=== PATIENT | male | born 1935 | race Caucasian/White ===

== ENCOUNTER 2017-01-01 09:41 | Observation (INO) | payer MEDICARE, OTHER ==
--- NOTE | ~2017-01-01 | EGD ---
EGD REPORT [facility] [address] [address] NAME: TAIWO BRANDT : 35 STATUS : ADM IN PAT#: [id number] AGE: 82 ADM/REG DATE : 01/01/17 MR#: [id number] REPORT SERV DATE: 01/03/17 DICTATED BY: DAVID SANTOS DATE: 01/03/17 REPORT STATUS : Draft TRANSCRIBED BY: [facility] DATE: 01/03/17 Endoscopy Center Patient Name: Taiwo Brandt Date of : 1935 Attending MD: DAVID SANTOS MD Procedure Date No Time: 01/03/2017 Procedure: Upper GI endoscopy Indications: Suspected upper gastrointestinal bleeding Referring MD: ABRAM SOTOMAYOR MD Medicines: Monitored Anesthesia Care Complications: No immediate complications. Estimated blood loss: Minimal. Procedure: Pre-Anesthesia Assessment: - ASA Grade Assessment: III - A patient with severe systemic disease. After obtaining informed consent, the endoscope was passed under direct vision. Throughout the procedure, the patient's blood pressure, pulse, and oxygen saturations were monitored continuously. The GIF H190 [id number] was introduced through the mouth, and advanced to the third part of duodenum. The upper GI endoscopy was accomplished without difficulty. The patient tolerated the procedure well. Findings: The examined esophagus was normal. Two non-bleeding linear gastric ulcers with no stigmata of bleeding were found in the gastric antrum. The largest lesion was 4 mm in largest dimension. One non-bleeding cratered duodenal ulcer with pigmented material was found in the third part of the duodenum. The lesion was 10 mm in largest dimension. A medium-sized hiatus hernia was present. The exam was otherwise without abnormality. Impression: - Gastric ulcers with clean base. - One non-bleeding duodenal ulcer. - Hiatus hernia. - The examination was otherwise normal. Recommendation: - Observe patient in CDU until patient is stable. - Check hemoglobin q 12 hours until stable. - OK to discharge once Hbg has been stable for more than 24 hours EGD REPORT [address] [place]. [address] NAME: TAIWO BRANDT : 35 STATUS : ADM IN [facility]#: [id number] AGE: 82 ADM/REG DATE : 01/01/17 MR#: [id number] REPORT SERV DATE: 01/03/17 DICTATED BY: DAVID SANTOS DATE: 01/03/17 REPORT STATUS : Draft TRANSCRIBED BY: [employer] DATE: 01/03/17 Procedure Code(s): --- Professional --- 15709, Esophagogastroduodenoscopy, flexible, transoral; diagnostic, including collection of specimen(s) by brushing or washing, when performed (separate procedure) Diagnosis Code(s): --- Professional --- K25.9, Gastric ulcer, unspecified as acute or chronic, without hemorrhage or perforation K26.9, Duodenal ulcer, unspecified as acute or chronic, without hemorrhage or perforation K44.9, Diaphragmatic hernia without obstruction or gangrene CPT copyright 2013 [employer]. All rights reserved. The codes documented in this report are preliminary and upon insurance administrative assistant review may be revised to meet current compliance requirements. David Santos MD DAVID SANTOS MD 01/03/2017 3:58 PM This report has been signed electronically. Number of Addenda: 0 Note Initiated On: 01/03/2017 3:23 PM Scope Withdrawal Time 0 hours 0 minutes 0 seconds [id number] [place] [id number]
--- NOTE | ~2017-01-01 | EGD ---
EGD REPORT [facility] [address] [address] NAME: TAIWO BRANDT : 35 STATUS : ADM IN PAT#: [id number] AGE: 82 ADM/REG DATE : 01/01/17 MR#: [id number] REPORT SERV DATE: 01/02/17 DICTATED BY: DATE: REPORT STATUS : Draft TRANSCRIBED BY: [employer] DATE: 01/02/17 Endoscopy Center Patient Name: Taiwo Brandt Date of : 1935 Attending MD: ABRAM SOTOMAYOR MD Procedure Date No Time: 01/02/2017 Procedure: Colonoscopy Indications: Heme positive stool, Iron deficiency anemia Referring MD: NELI LEIGH Medicines: See the Anesthesia note for documentation of the administered medications Complications: No immediate complications. Estimated blood loss: Minimal. Procedure: Pre-Anesthesia Assessment: - ASA Grade Assessment: III - A patient with severe systemic disease. After I obtained informed consent, the scope was passed under direct vision. Throughout the procedure, the patient's blood pressure, pulse, and oxygen saturations were monitored continuously. The [facility] [id number] was introduced through the anus and advanced to the terminal ileum. The ileocecal valve, appendiceal orifice, terminal ileum and rectum were photographed. The entire colon was examined. The colonoscopy was performed without difficulty. The patient tolerated the procedure well. The quality of the bowel preparation was good. Findings: The perianal and digital rectal examinations were normal. The terminal ileum appeared normal. A pedunculated polyp was found in the distal descending colon. The polyp was 15 mm in size. The polyp was removed with a hot snare. Resection and retrieval were complete. One hemostatic clip was successfully placed. Bleeding had stopped at the end of the maneuver. Non-bleeding internal hemorrhoids were found during retroflexion and were Grade I (internal hemorrhoids that do not prolapse). No other significant abnormalities were identified in a careful examination of the remainder of the colon. Impression: - The examined portion of the ileum was normal. - One 15 mm polyp in the distal descending colon. Resected and retrieved. Clip was placed. - Non-bleeding internal hemorrhoids. Recommendation: - Patient has a contact number available for EGD REPORT [address] [address] NAME: TAIWO BRANDT : 35 STATUS : ADM IN [facility]#: [id number] AGE: 82 ADM/REG DATE : 01/01/17 MR#: [id number] REPORT SERV DATE: 01/02/17 DICTATED BY: DATE: REPORT STATUS : Draft TRANSCRIBED BY: [employer] DATE: 01/02/17 emergencies. The signs and symptoms of potential delayed complications were discussed with the patient. Return to normal activities tomorrow. Written discharge instructions were provided to the patient. - Clear liquid diet today. - Return patient to hospital [facility] for observation. - Continue present medications. - Await pathology results. - Repeat colonoscopy is not recommended for surveillance. Procedure Code(s): --- Professional --- 77406, Colonoscopy, flexible, proximal to splenic flexure; with removal of tumor(s), polyp(s), or other lesion(s) by snare technique Diagnosis Code(s): --- Professional --- K64.0, First degree hemorrhoids D12.4, Benign neoplasm of descending colon R19.5, Other fecal abnormalities D50.9, Iron deficiency anemia, unspecified CPT copyright 2013 [employer]. All rights reserved. The codes documented in this report are preliminary and upon picking tech review may be revised to meet current compliance requirements. ABRAM SOTOMAYOR MD 01/02/2017 9:10 AM This report has been signed electronically. Number of Addenda: 0 Note Initiated On: 01/02/2017 6:59 AM Scope Withdrawal Time 0 hours 7 minutes 11 seconds [id number] [place] [id number]
--- NOTE | ~2017-01-01 | CN ---
Consultation Report [facility] [address] [place]. [address] NAME: TAIWO WARNER : 35 STATUS : ADM IN PAT#: [id number] AGE: 82 ADM/REG DATE : 01/01/17 MR#: [id number] REPORT SERV DATE: 01/02/17 DICTATED BY: CHAIM LEES DATE: 01/02/17 REPORT STATUS : Draft TRANSCRIBED BY: LEVI DATE: 01/02/17 DATE OF CONSULTATION: 01/01/2017 REASON FOR CONSULT: Medical management. HISTORY OF PRESENT ILLNESS: This patient is an 82-year-old gentleman who was admitted due to positive blood in stool. The patient is under the care of Dr. Jimenes. The patient underwent an EGD and colonoscopy today, which was noted a large duodenal polyp which was biopsied. The patient is at this time resting in his room. Denies pain. He does state he is having slight abdominal tenderness. Denies nausea and vomiting. He does deny shortness of breath. No chest pain at this time. PAST MEDICAL HISTORY: 1. Parkinson disease. 2. Hypertension. 3. Gastroesophageal reflux disease. 4. Iron deficiency anemia. 5. Heme-positive stool. 6. Hard of hearing, wears hearing aids. PAST SURGICAL HISTORY: No surgeries. SOCIAL HISTORY: The patient lives alone. Was a former smoker. Denies alcohol use. He does state his one year ago. ALLERGIES: NO KNOWN DRUG ALLERGIES. HOME MEDICATIONS: 1. Lisinopril 10 mg one p.o. daily. 2. Prilosec 20 mg p.o. daily. 3. Visken 2.5 mg daily. 4. Tranxene 7.5 mg one p.o. daily p.r.n. for pain. 5. Sinemet 25/100 mg tab one p.o. three times daily. PHYSICAL EXAMINATION: VITAL SIGNS: O2 sats 95% on room air. Temp is 97.9, pulse is 78, respirations are 20, and blood pressure is 138/78. GENERAL: This patient is elderly, in no apparent distress. Cooperative. HEENT: No JVD. No nodes. LUNGS: Clear bilateral. No wheezes, rales, or rhonchi. CARDIOVASCULAR: Regular rate and rhythm. No murmurs, rubs, or gallops. ABDOMEN: Soft, slightly tender to touch in the upper abdomen. Bowel sounds are active. EXTREMITIES: No edema. No cyanosis. NEURO: The patient is alert and oriented to person, place, and time. Consultation Report [facility] [address] [address] NAME: TAIWO WARNER : 35 STATUS : ADM IN PAT#: [id number] AGE: 82 ADM/REG DATE : 01/01/17 MR#: [id number] REPORT SERV DATE: 01/02/17 DICTATED BY: CHAIM LEES DATE: 01/02/17 REPORT STATUS : Draft TRANSCRIBED BY: LEVI DATE: 01/02/17 LABORATORY DATA: WBC is 9.6, hemoglobin 10.7, hematocrit 36.2, platelet count 237. Sodium 142, potassium is 4.0, chloride is 107, CO2 is 24, BUN is 10, creatinine is 0.85. Glucose is 104, calcium is 9.2, magnesium is 2.6, phosphorus is 3.0. Total protein is 8.0. Total bilirubin 0.5. Alkaline phosphatase 112, ALT is 17, AST is 13. PROCEDURES: 1. Colonoscopy. Impression: Exam portion of the ileum was normal. A 15 mm polyp in the distal descending colon. Resected and retrieved. Nonbleeding internal hemorrhoids. 2. EGD. Impression: Single duodenal polyp, incomplete resection. Resected tissue retrieved. Injected. Treated with therapy. Clips were placed. Normal stomach and normal esophagus. ASSESSMENT AND PLAN: 1. Iron deficiency anemia, heme-positive stool, duodenal bleed. The patient has been admitted overnight. H and H will be monitored. 2. Transfuse if needed. 3. Hypertension. The patient has known history of hypertension. We will restart home medications. Add hydralazine p.r.n. as needed. 4. Parkinson disease. The patient is at baseline. We will continue home medications and monitor. 5. Large duodenal polyp, status post esophagogastroduodenoscopy/colonoscopy by Dr. Jimenes on 01/02/2017. Plan of care per Dr. Jimenes. This patient will be followed with the assistance of Dr. Jimenes, and we will involve case management to see patient due to the patient living alone. We will assess for needs upon discharge. Thank you for this consultation. SHANA/LEVI Chaim Lees NP / [id number] CC: Divya Rodriguez M.D.
--- NOTE | ~2017-01-01 | EGD ---
EGD REPORT [facility] [address] [address] NAME: TAIWO BRANDT : 35 STATUS : ADM IN PAT#: [id number] AGE: 82 ADM/REG DATE : 01/01/17 MR#: [id number] REPORT SERV DATE: 01/02/17 DICTATED BY: LYUDMILA SOTOMAYOR DATE: 01/02/17 REPORT STATUS : Draft [facility] DATE: 01/02/17 Endoscopy Center Patient Name: Taiwo Brandt Date of : 1935 Attending MD: ABRAM SOTOMAYOR MD Procedure Date No Time: 01/02/2017 Procedure: Upper GI endoscopy Indications: Iron deficiency anemia, Heme positive stool Referring MD: NELI LEIGH Medicines: See the Anesthesia note for documentation of the administered medications Complications: No immediate complications. Estimated blood loss: Minimal. Procedure: Pre-Anesthesia Assessment: - ASA Grade Assessment: III - A patient with severe systemic disease. - Prior to the procedure, a History and Physical was performed, and patient medications and allergies were reviewed. The patient's tolerance of previous anesthesia was also reviewed. The risks and benefits of the procedure and the sedation options and risks were discussed with the patient. All questions were answered, and informed consent was obtained. Prior Anticoagulants: The patient has taken no previous anticoagulant or antiplatelet agents. After reviewing the risks and benefits, the patient was deemed in satisfactory condition to undergo the procedure. After obtaining informed consent, the endoscope was passed under direct vision. Throughout the procedure, the patient's blood pressure, pulse, and oxygen saturations were monitored continuously. The GIF H190 [id number] was introduced through the mouth, and advanced to the second part of duodenum. The upper GI endoscopy was accomplished without difficulty. The patient tolerated the procedure well. Findings: A single 10 mm sessile polyp with was found in the second part of the duodenum. The polyp was removed with a hot snare. Polyp resection was incomplete. The resected tissue was retrieved. Estimated blood loss: 10 mL requiring treatment with epinephrine. Area was successfully injected with 8 mL of a 1:10,000 solution of epinephrine for drug delivery. Coagulation for hemostasis using heater probe was successful. Two hemostatic clips were successfully placed. Bleeding had stopped at the end of the procedure. EGD REPORT [place] [address] [facility] [place]. [address] NAME: TAIWO BRANDT : 35 STATUS : ADM IN [facility]#: [id number] AGE: 82 ADM/REG DATE : 01/01/17 MR#: [id number] REPORT SERV DATE: 01/02/17 DICTATED BY: LYUDMILA SOTOMAYOR DATE: 01/02/17 REPORT STATUS : Draft TRANSCRIBED BY: [employer] DATE: 01/02/17 The entire examined stomach was normal. The cardia and gastric fundus were normal on retroflexion. The examined esophagus was normal. Impression: - A single duodenal polyp. Incomplete resection. Resected tissue retrieved. Injected. Treated with thermal therapy. Clips were placed. - Normal stomach. - Normal esophagus. Recommendation: - Return patient to hospital [facility] for ongoing care. - Clear liquid diet. - Await pathology results. Procedure Code(s): --- Professional --- 98964, Esophagogastroduodenoscopy, flexible, transoral; with removal of tumor(s), polyp(s), or other lesion(s) by snare technique Diagnosis Code(s): --- Professional --- K31.7, Polyp of stomach and duodenum D50.9, Iron deficiency anemia, unspecified R19.5, Other fecal abnormalities CPT copyright 2013 [employer]. All rights reserved. The codes documented in this report are preliminary and upon lung splitter review may be revised to meet current compliance requirements. ABRAM SOTOMAYOR MD 01/02/2017 8:51 AM This report has been signed electronically. Number of Addenda: 0 Note Initiated On: 01/02/2017 6:59 AM Scope Withdrawal Time 0 hours 0 minutes 0 seconds [id number] [place] [id number]
--- NOTE | ~2017-01-01 | DS ---
Discharge Summary [facility] [address] [place]. [address] NAME: TAIWO WARNER : 35 STATUS : DIS Bertram PAT#: [id number] AGE: 82 ADM/REG DATE : 01/01/17 MR#: [id number] REPORT SERV DATE: 03/04/17 DICTATED BY: LACHO CARRILLO DATE: 03/03/17 REPORT STATUS : Draft TRANSCRIBED BY: [employer] DATE: 03/03/17 ADMISSION DATE: 01/01/2017 DISCHARGE DATE: 01/04/2017 DISCHARGE DIAGNOSES: Includes iron-deficiency anemia, Hemoccult-positive stools, duodenal polyps with post-polypectomy bleeding, acute blood loss anemia, history of Parkinson's disease. CONSULTANTS: Hospitalist, nurse practitioner, Kala Lees, on 01/02/2017. IMAGING: None. COURSE OF HOSPITAL STAY: Please refer to my history and physical exam dated 01/02/2017. This patient was admitted under GI Services for a presumed 24-hour admission secondary to Parkinson's disease, poor living situation with no help at home with the ability to prep. He was admitted for a preprocedure bowel prep. He was admitted on 01/01/2017. He did undergo a bowel prep. He did have his procedures done with Dr. Yaw Jimenes. On 01/02/2017, he had an upper endoscopy which revealed a single duodenal polyp that was incompletely resected. The resected tissue was retrieved. He injected that area and treated with thermal therapy as well as placed clips. The patient had normal stomach and a normal esophagus. He did undergo a colonoscopy the same day with Dr. Yaw Jimenes. This exam showed normal ilium, a polyp in the distal descending colon, was resected and retrieved and a clip was placed. He had nonbleeding internal hemorrhoids. The patient was admitted overnight for observation secondary to the large duodenal polyp being removed and clip being placed. The patient's hemoglobin was trended. He was admitted with a hemoglobin of 10.7. He subsequently dropped to 9.9, however, he did have several bloody bowel movements the next day, the patient was kept. Again, he went underwent a repeat upper endoscopy by Dr. Horton on 01/03/2017. This exam showed the gastric ulcer with clean base, one nonbleeding duodenal ulcer and hiatal hernia. The patient was observed until the 01/04/2017 with serial hemoglobins which remained stable. His discharge hemoglobin was 9.9. He was discharged to home on a regular diet and he was to resume his home medications and follow up with Dr. Yaw Jimenes as directed by the office. His discharge medications included Tranxene 7.5 mg by mouth as needed, Sinemet 25/100 mg by mouth three times a day, Visken 2.5 mg a day, Prilosec 20 mg a day, Proventil 10 mg per day. DICTATED BY: LUNA Joseph/LEVI LUNA Joseph Discharge Summary [address] [address] NAME: TAIWO WARNER : 35 STATUS : DIS [place] PAT#: [id number] AGE: 82 ADM/REG DATE : 01/01/17 MR#: [id number] REPORT SERV DATE: 03/04/17 DICTATED BY: LACHO CARRILLO DATE: 03/03/17 REPORT STATUS : Draft TRANSCRIBED BY: LEVI DATE: 03/03/17 / [id number] CC: Divya Rodriguez M.D.
--- NOTE | ~2017-01-01 | HP ---
History And Physical [place] [id number] [facility] [place]. [address] NAME: KAPIL BRANDT : 35 STATUS : ADM IN PAT#: [id number] AGE: 82 ADM/REG DATE : 01/01/17 MR#: [id number] REPORT SERV DATE: 01/02/17 DICTATED BY: LACHO CARRILLO DATE: 01/02/17 REPORT STATUS : Draft TRANSCRIBED BY: [employer] DATE: 01/02/17 DATE OF ADMISSION: 01/01/2017 82-year-old male patient. HISTORY OF PRESENT ILLNESS: Mr. Kapil Brandt is an 82-year-old male patient, who is known to Dr. Yaw Jimenes, who was pre-admitted on the in anticipation for colonoscopy secondary to his living situation. He lives alone and he has advanced Parkinson's disease. His EGD and colonoscopy were being done secondary to iron-deficiency anemia. He had his procedure today with Dr. Jimenes. His upper endoscopy revealed a single 10 mm sessile polyp in the second portion of the duodenum. This polyp was removed with hot snare. Resection was incomplete. The resected tissue was retrieved. He had 10 mL of epinephrine injected and then coagulation for hemostasis using a heater probe was successful. Also placed 2 hemostatic clips. The bleeding had stopped by the end of the procedure. However secondary to bleeding, the patient was admitted for overnight observation with serial H and Hs, clear liquid diet, and monitoring. He also underwent a colonoscopy, normal ileum, 15 mm polyp in the distal descending colon removed, and nonbleeding internal hemorrhoids. I have talked to Mr. Brandt. He feels fine at this moment. His hemoglobin is stable at this current time. His current hemoglobin noted to be 9.9; on admission, it was 10.7. I have discussed with the patient we will monitor him overnight, clear liquid diets now and advance as tolerated and most likely, we will discharge him to home tomorrow barring any unforeseen circumstances. PAST MEDICAL HISTORY: He has a past medical history of iron-deficiency anemia, colon polyps, Parkinson's disease, hypertension, GERD, GI bleeding, ulcer, and depression. FAMILY HISTORY: Noncontributory from a GI standpoint. ALLERGIES: NOTHING. HOME MEDICATIONS: Sinemet; Tranxene; Proventil; Prilosec; and Visken. REVIEW OF SYSTEMS: A 10-point review of systems obtained, pertinent positives addressed in the history of present illness. PHYSICAL EXAMINATION: VITAL SIGNS: Last temperature was 98.6, pulse 55, respirations 18, and blood pressure 163/89. NEUROLOGIC: Physical exam reveals an alert, male, resting in bed with no obvious focal deficits. He is awake. He is alert. He is oriented x3. GENERAL: He is cooperative. He is in no obvious distress. He has notable tremor secondary to Parkinson's. NECK: No JVD. No palpable nodes. Supple. LUNGS: Clear anteriorly with normal respiratory effort exhibited. Equal expansion. Diminished bilaterally in the bases. History And Physical [address] [place]. [address] NAME: KAPIL BRANDT : 35 STATUS : ADM IN [facility]#: [id number] AGE: 82 ADM/REG DATE : 01/01/17 MR#: [id number] REPORT SERV DATE: 01/02/17 DICTATED BY: LACHO CARRILLO DATE: 01/02/17 REPORT STATUS : Draft TRANSCRIBED BY: LEVI DATE: 01/02/17 CARDIOVASCULAR SYSTEM: Regular rate and rhythm. ABDOMEN: Soft, nontender, nondistended. Active bowel sounds in all four quadrants. EXTREMITIES: No edema. Normal distal pulses. SKIN: Warm, dry, and intact. PERTINENT LABS: Sodium 142, potassium 4, BUN is 10, creatinine 0.85. White count 9.6, hemoglobin is 9.9, hematocrit is 34, and platelet count 237. ASSESSMENT AND PLAN: 1. Iron-deficiency anemia, status post EGD and colonoscopy with large duodenal polyps resected and retrieved with bleeding at the time of exam that had been treated and stopped. 2. History of Parkinson's disease. 3. Hypertension. PLAN: Monitor H and H overnight. Clear liquid diet. Transfuse if needed. Hospitalist to see for medical management. If stable in the morning with no signs of bleeding and he has stable hemoglobin, we will advance diet and discharge later in the day. TYLER/LEVI Lacho LUNA Givens / [id number] CC: Divya Rodriguez M.D.
[~2017-01-01 09:41] MED LIST: CARBIDOPA-LEVO; PRILO PO; PRIN10 PO; TRANXENE 7.5 M7.5 MG OR
[2017-01-01] MEDS ORDERED: TRANXENE 7.5 M7.5 MG PO (14:55)
[2017-01-01] MEDS ORDERED: SIN25 PO (14:55)
[2017-01-01] MEDS ORDERED: VISKEN5 PO (14:55)
[2017-01-01] MEDS ORDERED: PRIN10 PO (14:55)
[2017-01-01] MEDS ORDERED: PRILO PO (14:55)
[2017-01-02 04:50] LABS: BASOPHILS 0.3 %; BASOPHILS ABSOLUTE 0.03 10/3/uL (0.0-0.16); EOSINOPHILS 2.5 %; EOSINOPHILS ABSOLUTE 0.24 10/3/uL (0.0-0.53); HEMATOCRIT 36.2 % (40.0-51.0); HEMOGLOBIN 10.7 g/dL (13.6-17.8); IMMATURE GRANULOCYTES 0.2 %; IMMATURE GRANULOCYTES ABSOLUTE 0.02 10/3/uL (0.0-0.11); LYMPHOCYTES 32.6 %; LYMPHOCYTES ABSOLUTE 3.14 10/3/uL (0.67-4.30); MEAN CORPUS HGB CONC 29.6 g/dL (32.0-36.0); MEAN CORPUSCULAR HEMOGLOB 20.8 pg (26.0-34.0); MEAN CORPUSCULAR VOLUME 70.4 fL (80-100); MEAN PLATELET VOLUME 9.9 fL (9.2-13.0); MONOCYTES 8.4 %; MONOCYTES ABSOLUTE 0.81 10/3/uL (0.21-1.20); NEUTROPHILS ABSOLUTE 5.38 10/3/uL (2.02-8.40); PLATELET COUNT 237 10/3/uL (150-400); RED CELL COUNT 5.14 10/6/uL (4.7-6.1); WHITE BLOOD CELLS 9.6 10/3/uL (4.5-10.5)
[2017-01-02 04:56] LABS: MANUAL DIFF NO %
[2017-01-02 04:57] LABS: INTERNATIONAL NORMAL RATI 1.1 UNITS (-); PROTIME (NOT ORD) 14.1 SEC (12.0-14.5)
[2017-01-02 05:21] LABS: A/G RATIO 0.9 (0.7-1.9); ALBUMIN 3.8 G/DL (3.5-5.0); ALKALINE PHOSPHATASE 112 U/L (45-117); CALCIUM, SERUM 9.2 MG/DL (8.5-10.4); CHLORIDE, SERUM 107 MMOL/L (96-112); CO2 (CARBON DIOXIDE) 24 MMOL/L (24-34); CREATININE 0.85 MG/DL (0.70-1.30); GFR AFRICAN AMERICAN 94 ML/MIN (>=60); GFR NON AFRICAN AMERICAN 81 ML/MIN (>=60); SGOT(AST) 13 U/L (5-40); SGPT(ALT) 17 U/L (5-65); SODIUM, SERUM 142 MMOL/L (135-148); TOTAL BILIRUBIN 0.5 MG/DL (0-1.2)
[2017-01-02 05:26] LABS: BUN (BLOOD UREA NITROGEN) 10 MG/DL (6-23); GLOBULIN 4.2 G/DL (2.5-4.1); GLUCOSE, SERUM 104 MG/DL (60-99)
[2017-01-02 05:29] LABS: ANISOCYTOSIS 1+ (5-10/OIF) (0-5/OIF); PLATELET ESTIMATE ADQ (ADEQUATE)
[2017-01-02 10:48] LABS: HEMOGLOBIN 9.9 g/dL (13.6-17.8)
[2017-01-02 14:55] LABS: HEMATOCRIT 33.8 % (40.0-51.0); HEMOGLOBIN 9.9 g/dL (13.6-17.8)
[2017-01-02 18:22] LABS: HEMATOCRIT 35.3 % (40.0-51.0); HEMOGLOBIN 10.2 g/dL (13.6-17.8)
[2017-01-02 23:05] LABS: HEMOGLOBIN 10.7 g/dL (13.6-17.8)
[2017-01-03 04:54] LABS: BASOPHILS 0.2 %; BASOPHILS ABSOLUTE 0.02 10/3/uL (0.0-0.16); EOSINOPHILS 0.2 %; EOSINOPHILS ABSOLUTE 0.02 10/3/uL (0.0-0.53); HEMOGLOBIN 10.1 g/dL (13.6-17.8); IMMATURE GRANULOCYTES 0.2 %; IMMATURE GRANULOCYTES ABSOLUTE 0.02 10/3/uL (0.0-0.11); LYMPHOCYTES 30.6 %; LYMPHOCYTES ABSOLUTE 3.55 10/3/uL (0.67-4.30); MEAN CORPUS HGB CONC 28.9 g/dL (32.0-36.0); MEAN CORPUSCULAR HEMOGLOB 20.4 pg (26.0-34.0); MEAN CORPUSCULAR VOLUME 70.7 fL (80-100); MEAN PLATELET VOLUME 9.7 fL (9.2-13.0); MONOCYTES 7.5 %; MONOCYTES ABSOLUTE 0.87 10/3/uL (0.21-1.20); NEUTROPHILS 61.3 %; NEUTROPHILS ABSOLUTE 7.14 10/3/uL (2.02-8.40); PLATELET COUNT 247 10/3/uL (150-400); RBC DISTRIBUTION WIDTH 18.2 % (12.0-16.0); RED CELL COUNT 4.95 10/6/uL (4.7-6.1); WHITE BLOOD CELLS 11.6 10/3/uL (4.5-10.5)
[2017-01-03 04:57] LABS: MANUAL DIFF NO %
[2017-01-03 05:48] LABS: ANISOCYTOSIS 1+ (5-10/OIF) (0-5/OIF); PLATELET ESTIMATE ADQ (ADEQUATE)
[2017-01-03 06:09] LABS: BUN (BLOOD UREA NITROGEN) 25 MG/DL (6-23); CALCIUM, SERUM 8.7 MG/DL (8.5-10.4); CHLORIDE, SERUM 106 MMOL/L (96-112); CO2 (CARBON DIOXIDE) 23 MMOL/L (24-34); CREATININE 0.85 MG/DL (0.70-1.30); GFR AFRICAN AMERICAN 94 ML/MIN (>=60); GFR NON AFRICAN AMERICAN 81 ML/MIN (>=60); GLUCOSE, SERUM 113 MG/DL (60-99); SODIUM, SERUM 142 MMOL/L (135-148)
[2017-01-03 17:20] LABS: HEMATOCRIT 34.8 % (40.0-51.0); HEMOGLOBIN 10.3 g/dL (13.6-17.8)
[2017-01-04 05:20] LABS: HEMATOCRIT 33.4 % (40.0-51.0); HEMOGLOBIN 9.9 g/dL (13.6-17.8)
== END 2017-01-04 13:50 | disposition home or self-care (01) ==
LOC: 4EA 09:41
PROVIDERS: Internal Medicine Gastroenterology; Nurse Practitioner Family
PROC: 0DBM8ZZ Excision of Descending Colon, Via Natural or Artificial Opening Endoscopic (ICD-10-PCS; principal; 2017-01-02 16:00)
PROC: 0DB98ZZ Excision of Duodenum, Via Natural or Artificial Opening Endoscopic (ICD-10-PCS; 2017-01-03)
DX: D12.4 Benign neoplasm of descending colon (principal); D13.2 Benign neoplasm of duodenum; D50.9 Iron deficiency anemia, unspecified; K64.0 First degree hemorrhoids; K25.9 Gastric ulcer, unspecified as acute or chronic, without hemorrhage or perforation; K26.9 Duodenal ulcer, unspecified as acute or chronic, without hemorrhage or perforation; K44.9 Diaphragmatic hernia without obstruction or gangrene; K21.9 Gastro-esophageal reflux disease without esophagitis; I10 Essential (primary) hypertension; G20 Parkinson's disease; Z87.891 Personal history of nicotine dependence; Z79.899 Other long term (current) drug therapy
CPT/HCPCS: 36415; 80048; 80053; 83735; 84100; 85014; 85018; 85025; 85610; 86850; 86900; 86901; 86920; 88305; 96374; 96376; A9270-GY; C9113; G0378; J2405